=== PATIENT | male | born 1985 | race Caucasian/White ===

== ENCOUNTER 2018-09-30 21:02 | Emergency (ER) | payer OTHER, SELFPAY ==
[2018-09-30 21:04] VITALS: BP 112/74; PULSE 109; RESP 18; TEMP 38.9; O2SAT 94; BMI 28.8
[2018-09-30 21:39] VITALS: BP 112/74; PULSE 109; RESP 18; TEMP 38.9; O2SAT 94
[2018-09-30] MEDS: Acetaminophen 325 MG Tablet 650 MG PO (21:43)
--- NOTE | 2018-09-30 22:04 | EKG12_ITS ---
Test Reason : Blood Pressure : / mmHG Vent. Rate : 092 BPM Atrial Rate : 092 BPM P-R Int : 146 ms QRS Dur : 080 ms QT Int : 348 ms P-R-T Axes : 040 080 052 degrees QTc Int : 430 ms Normal sinus rhythm Nonspecific ST abnormality Abnormal ECG Confirmed by JENNIFER ESCAMILLA, DYAN ([id number]), assignment editor DARREL SYLVESTER ([id number]) on 10/03/2018 12:51:27 PM Referred By: JOSE Confirmed By:DYAN RODRIGUEZ MD
--- NOTE | 2018-09-30 22:06 | ED.VISSUMM ---
- ER Visit Summary Date of Service: 09/30/18 Chief Complaint: Fever and cough History of Present Illness: The patient is a 33 M who presents for 3 days of fever and cough. Patient states he began having a cough, developed a fever, and then began having posttussive emesis as well as vomiting after oral intake. He is only been able to keep down some water. He vomits after food. He now has chest discomfort, sore throat, headache and diffuse myalgias. Patient did not get a flu shot this year. He denies any urinary symptoms. Allergic to codeine. He is a smoker but is not been able to smoking 2 days because it puts his throat. He has 3 family members with similar symptoms. Physical Examination: Vital signs: Febrile at 102.1, tachycardic, normotensive, no hypoxia on room air General: well nourished, well developed, ill-appearing, but nontoxic Skin: warm, flushed, moist, no rash, no pallor HEENT: normocephalic and atraumatic; PERRL, EOMI, moist mucous membranes, no oropharyngeal lesions noted, neck is supple, nontender, no lymphadenopathy Cardiovascular: Tachycardic rate and rhythm without murmurs, no peripheral edema, 2+ pulses all distal extremities Respiratory: No increased work of breathing, lungs show rhonchi in the left lower field Abdominal: Abdomen is soft, nontender with normoactive bowel sounds, no guarding or rebound, no masses MSK: Moves all extremities, no deformities, normal strength Neuro: Awake and alert, oriented ?4. No facial droop, sensation and motor function intact and symmetric Test Results: Abnormal Lab Results 09/30/18 09/30/18 09/30/18 22:22 22:22 23:36 WBC 7.3 RBC 4.69 Hgb 15.3 Hct 44.2 MCV 94.2 H MCH 32.6 H MCHC 34.6 RDW 13.7 RDW Differential 45.8 H Plt Count 72 L MPV 13.0 H Immature Gran % (Auto) 0.300 Neut % (Auto) 84.1 H Lymph % (Auto) 7.1 L [place] % (Auto) 8.4 Eos % (Auto) 0.0 Baso % (Auto) 0.1 Absolute Neuts (auto) 6.2 Absolute Lymphs (auto) 0.52 L Total Counted Not Reportable Differential Comment Sodium 136 Potassium 3.6 Chloride 105 Carbon Dioxide 21.0 Anion Gap 10 BUN 21 H Creatinine 1.23 Estim Creat Clear Calc 95.51 Est GFR (MDRD) Af Amer 88 Est GFR (MDRD) Non-Af 73 BUN/Creatinine Ratio 17.1 Glucose 120 H Lactic Acid 1.0 Calcium 8.2 L Medications Given Lactated Ringer's () 1,000 mls @ 999 mls/hr IV .Q1H1M VIRGIE Stop: 10/01/18 01:25 Ondansetron HCl (Zofran Odt) 0 mg PO .TAKE HOME MED [facility] Discontinued Medications Acetaminophen (Tylenol) 650 mg PO X1 ONE Stop: 09/30/18 21:11 Last Admin: 09/30/18 21:43 Dose: 650 mg Acetaminophen (Tylenol) 650 mg PO X1 ONE Stop: 10/01/18 00:29 Azithromycin (Zithromax) 500 mg PO X1 ONE Stop: 10/01/18 00:45 Sodium Chloride () 1,000 mls @ 1,000 mls/hr IV .Q1H ONE Stop: 09/30/18 23:02 Last Admin: 09/30/18 22:15 Dose: 1,000 mls/hr Ketorolac Tromethamine (Toradol) 30 mg IV X1 ONE Stop: 09/30/18 22:04 Last Admin: 09/30/18 22:17 Dose: 30 mg Ondansetron HCl (Zofran) 4 mg IV X1 ONE Stop: 09/30/18 22:04 Last Admin: 09/30/18 22:18 Dose: 4 mg Promethazine HCl (Phenergan) 12.5 mg IV X1 ONE Stop: 10/01/18 00:29 Emergency Department Course and Treatment: Patient was given IV fluids for hydration, Toradol for fever and discomfort, and Zofran for nausea. He had received Tylenol while in triage. Flu was checked and was negative. Patient had no leukocytosis but did have neutrophil predominance. Lactate normal. Mild dehydration labs. Patient received 1 L of normal saline and on reevaluation was normotensive, afebrile, and heart rate was within normal range. Patient continued to have myalgias, headache and general discomfort and was given additional Tylenol and Phenergan for nausea. He was given additional IV hydration. Chest x-ray was concerning for bilateral lower lobe infiltrate. Discussed this with patient, and he wants to try outpatient treatment. Patient was started on azithromycin, given the first dose in the emergency department. Patient was given return precautions. At time of discharge, he is afebrile, normotensive, room air sat 92-93% without oxygen. Patient appears more comfortable than at presentation. He will return if any worsening of his condition. Discharged home. Treatment Plan: [] Disposition: [] Impression: Community-acquired pneumonia This note was generated with [employer] dictation software. It may contain incorrect words, spelling, and punctuation that were not noted in review of the chart prior to signing ED Disposition - Plan for ED Patient: Chief Complaint: Fever Prescriptions: Azithromycin 250 mg PO DAILY #4 tab Ondansetron [Ondansetron Odt] 4 mg PO TID PRN #10 tab.rapdis PRN Reason: Nausea Referrals: Care Physician,No Primary [Primary Care Provider] -
--- NOTE | 2018-09-30 22:06 | ED.RN ---
NO OLD EKGS IN MUSE
[2018-09-30] MEDS: 0.9% Normal Saline 1,000 ML 1000 ML IV (22:15)
[2018-09-30] MEDS: Ketorolac 30 MG/ML Syringe IV (22:17)
[2018-09-30] MEDS: Ondansetron 4 MG/2 ML Vial IV (22:18)
[2018-09-30 22:20] VITALS: PULSE 92; RESP 14; TEMP 37.7; O2SAT 93
--- NOTE | 2018-09-30 22:24 | RAD_ITS ---
STUDY: X-RAY CHEST REASON FOR EXAM: Male, 33 years old. Cough with fever. TECHNIQUE: PA and lateral views of the chest. COMPARISON: Prior comparison studies are not available for review at this time. FINDINGS: The lungs are hyperexpanded. There is patchy bilateral basilar airspace consolidations and/or atelectasis. There are multiple calcified pulmonary nodules, more numerous on the left lower right. There also appear to be calcified hilar lymph nodes. There is no demonstrated pleural abnormality. Normal size heart. Normal mediastinum and ye. There is prominence of the pulmonary hilar arteries without peripheral pulmonary vascular congestion. Normal visualized aortic arch and descending thoracic aorta. Normal visualized thoracic spine. Normal visualized ribs, clavicles, and shoulders. There is no demonstrated abnormality of the visualized soft tissue structures of the upper abdomen. RAD/Chest PA and Lateral IMPRESSION: 1. Patchy bilateral groundglass attenuation and airspace consolidation suggesting pneumonia. 2. Multiple calcified nodules are presumably related to previous granulomatous infection. Electronically Signed: Oneyda Kimball MD at 1:05 EST , Service support ,
[2018-09-30 22:43] LABS: Absolute Lymphocyte Count 0.52 X10^3/ul (0.83-4.51); Absolute Neutrophil Count 6.2 X10^3/uL (2.0-7.7); Basophil# 0.01 X10^3/uL; Basophil% 0.1 % (0-1); Hematocrit 44.2 % (40-54); Hemoglobin 15.3 g/dl (13.0-16.5); Lymphocyte # 0.52 X10^3/ul (4.0); Lymphocyte % 7.1 % (19-41); Mean Corp Hgb Conc 34.6 g/gl (32-36); Mean Corpuscular Hgb 32.6 pg (27.0-32.0); Mean Corpuscular Volume 94.2 fL (80-94); Monocyte# 0.62 X10^3/uL; Monocyte% 8.4 % (0-10); Neutrophil # 6.17 X10^3/uL (2.7-7.7); Neutrophil % 84.1 % (47-70); Platelet Count 72 K/mm3 (150-450); RBC Distribution Width CV 13.7 % (11.6-14.6); RBC Distribution Width SD 45.8 fl (35.1-43.9); Red Blood Count 4.69 M/mm3 (4.6-6.2); White Blood Count 7.3 K/mm3 (4.4-11.0)
[2018-09-30 22:44] LABS: Differential Indicated SCAN CRITERIA MET; POSITIVE COUNT NO; POSITIVE DIFFERENTIAL YES; POSITIVE MORPHOLOGY NO
[2018-09-30 22:55] LABS: Anion Gap 10 (5-15); BUN 21 mg/dL (7-18); BUN/Creat Ratio 17.1 RATIO (10-20); Calcium,Total 8.2 mg/dL (8.5-10.1); Chloride 105 mmol/L (98-107); Creatinine, Serum 1.23 mg/dL (0.70-1.30); EST Glomerular Filtration Rate 73 mL/min (>60); Est Glom Filt Rate - Afr Amer 88 mL/min (>60); Estimated Creatinine Clearance 95.51 ml/min; Glucose 120 mg/dL (74-106); Potassium 3.6 mmol/L (3.5-5.1); Sodium Level 136 mmol/L (136-145)
[2018-09-30 23:00] VITALS: BP 126/59; PULSE 89; RESP 18; TEMP 36.6; O2SAT 91
[2018-10-01] MEDS: Lactated Ringers 1,000 ML 999 ML IV (00:44)
[2018-10-01] MEDS: Acetaminophen 325 MG Tablet 650 MG PO (00:45)
[2018-10-01] MEDS: proMETHazine 25 MG/ML Syringe 12.5 MG IV (00:46)
[2018-10-01 00:47] VITALS: BP 108/63; PULSE 86; RESP 24; TEMP 36.8; O2SAT 92
--- NOTE | 2018-10-01 00:49 | ED.DEP ---
ED Disposition - Plan for ED Patient: Disposition: Home or Assisted Living Chief Complaint: Fever Instructions: ED Pneumonia Adult Prescriptions: Azithromycin 250 mg PO DAILY #4 tab Ondansetron [Ondansetron Odt] 4 mg PO TID PRN #10 tab.rapdis PRN Reason: Nausea Referrals: Care Physician,No Primary [Primary Care Provider] - Keyon Bird MD [STAFF PHYSICIAN] - 3-5 Days if not improving Additional Instructions: Take the antibiotic prescription starting the night of 10/01/2018. You had your first dose in the emergency department. Use the ondansetron as needed for nausea. Drink plenty of fluids to stay hydrated. Use Tylenol or ibuprofen as needed for fever and discomfort. Insert return precautions.
[2018-10-01] MEDS: Azithromycin 250 MG Tablet 500 MG PO (01:55)
[2018-10-01] MEDS: Ondansetron ODT 4 MG Tablet PO (01:56)
[2018-10-01 02:01] VITALS: BP 108/63; PULSE 85; RESP 20; O2SAT 94
== END 2018-10-01 02:02 | disposition home or self-care (01) ==
PROVIDERS: Emergency Provider Emergency Medicine
DX: J18.9 Pneumonia, unspecified organism (principal); F17.200 Nicotine dependence, unspecified, uncomplicated
CPT/HCPCS: 36415; 71046; 80048; 83605; 85025; 87040; 87804; 93005; 96361; 96374; 96375; 99284; J7030; J7120; A4216; J2405

== ENCOUNTER 2018-11-14 08:16 | Emergency (ER) | payer OTHER, SELFPAY ==
[2018-11-14 08:17] VITALS: BP 146/84; PULSE 79; RESP 16; TEMP 36.3; O2SAT 100; BMI 29.0
--- NOTE | 2018-11-14 08:31 | ED.VISSUMM ---
- ER Visit Summary Date of Service: 11/14/18 Chief Complaint: Head injury History of Present Illness: The patient is a 33 M who presents with a head injury that occurred today. Patient was trying to loosen a bolt at work when the metal bar slipped and hit him in the head. Patient denies any loss of consciousness. Patient admits to a headache. Patient denies any visual changes. Patient denies any nausea or vomiting. Patient is unsure of his last tetanus. Patient states the bleeding stopped after a few minutes. Patient denies any paresthesias or weakness. Physical Examination: Vital signs are stable. Patient is afebrile. Patient is in no acute distress. Skin is warm and dry. There is a 3 cm linear laceration over the forehead. There is minimal bleeding. There is minimal gapping of the wound margins. There is no bony crepitance or step-off. Pupils are equal, round, and reactive to light bilaterally. Extraocular muscles are intact. Cranial nerves II through XII are intact. There are no focal motor or sensory deficits noted. The remaining physical exam is within normal limits. Emergency Department Course and Treatment: The wound was cleaned and closed with Dermabond skin adhesive. Patient tolerated the procedure well. Patient was instructed to follow-up with [facility] in 5-7 days. Patient was instructed to avoid bacitracin, Neosporin, or Vaseline-based ointment to the area. Patient understood and was agreeable with the plan. All questions were answered. Disposition: Discharge home Impression: 1. Forehead laceration 2. Closed head injury This note was generated with [employer] dictation software. It may contain incorrect words, spelling, and punctuation that were not noted in review of the chart prior to signing ED Disposition - Plan for ED Patient: Disposition: Home or Assisted Living Diagnosis: Laceration of forehead, left, complicated, Head injury Instructions: ED Head Injury Closed, ED Laceration Facial Skin Glue Referrals: Care Physician,No Primary [Primary Care Provider] - [facility] [GROUP OF PHYSICIANS] -
--- NOTE | 2018-11-14 08:35 | ED.DCSUM_ITS ---
- ER Visit Summary Date of Service: 11/14/18 Chief Complaint: Head injury History of Present Illness: The patient is a 33 M who presents with a head injury that occurred today. Patient was trying to loosen a bolt at work when the metal bar slipped and hit him in the head. Patient denies any loss of consciousness. Patient admits to a headache. Patient denies any visual changes. Patient denies any nausea or vomiting. Patient is unsure of his last tetanus. Patient states the bleeding stopped after a few minutes. Patient denies any paresthesias or weakness. Physical Examination: Vital signs are stable. Patient is afebrile. Patient is in no acute distress. Skin is warm and dry. There is a 3 cm linear laceration over the forehead. There is minimal bleeding. There is minimal gapping of the wound margins. There is no bony crepitance or step-off. Pupils are equal, ro und, and reactive to light bilaterally. Extraocular muscles are intact. Cranial nerves II through XII are intact. There are no focal motor or sensory deficits noted. The remaining physical exam is within normal limits. Emergency Department Course and Treatment: The wound was cleaned and closed with Dermabond skin adhesive. Patient tolerated the procedure well. Patient was [facility]7 days. Patient was instructed to avoid bacitracin, Neosporin, or Vaseline-based ointment to the area. Patient understood and was agreeable with the plan. All questions were answered. Disposition: Discharge home Impression: 1. Forehead laceration 2. Closed head injury This note was generated with [employer] dictation software. It may contain incorrect words, spelling, and punctuation that were not noted in review of the chart prior to signing ED Disposition - Plan for ED Patient: Disposition: Home or Assisted Living Diagnosis: Laceration of forehead, left, complicated, Head injury Instructions: ED Head Injury Closed, ED Laceration Facial Skin Glue Referrals: Care Physician,No Primary [Primary Care Provider] - [facility] [GROUP OF PHYSICIANS] -
[2018-11-14] MEDS: Diphth,Pertuss(Acell),Tet Vac 0.5 ML Vial IM (08:42)
== END 2018-11-14 09:40 | disposition home or self-care (01) ==
PROVIDERS: Emergency Provider Emergency Medicine
DX: S01.81XA Laceration without foreign body of other part of head, initial encounter (principal); Z72.0 Tobacco use; W20.8XXA Other cause of strike by thrown, projected or falling object, initial encounter; Y93.89 Activity, other specified; Y92.89 Other specified places as the place of occurrence of the external cause; Y99.0 Civilian activity done for income or pay
CPT/HCPCS: 12013; 90471; 90715; 99282

== ENCOUNTER 2019-08-20 08:25 | Emergency (ER) | payer SELFPAY ==
[2019-08-20 08:25] VITALS: BP 153/95; PULSE 107; RESP 18; TEMP 36.5; O2SAT 99; BMI 27.9
--- NOTE | 2019-08-20 08:44 | ED.DCSUM_ITS ---
History of Present Illness Chief Complaint: Allergic Reaction Informant: Patient, Family Onset: Yesterday Current Severity: Moderate Maximum Severity: Moderate Narrative: Patient presents with allergic reaction and rash. He states yesterday afternoon after eating a sandwich he developed rather sudden onset of tingling around his mouth and rash over his face and trunk. He took a shower to try to wash off any contact irritant. This did not change his symptoms and rash actually spread to include his lower extremities. He has been taking Benadryl without significant improvement. He is tolerating secretions and has a strong voice but states he does have some throat tightness when he tries to lie down. Past Medical History - Allergies and Home Meds Allergies/Adverse Reactions: Allergies codeine Allergy (Verified 08/20/19 08:27) Unknown venom-honey bee [bee venom (honey bee)] Allergy (Verified 08/20/19 08:27) Anaphylaxis Primary Care Physician: Marva Valero MD [STAFF PHYSICIAN] - As Needed Care Physician,No Primary [Primary Care Provider] - Prior records reviewed: Yes Past Medical History: None Lives: Spouse/ Significant Other Smoking Status: Current every day smoker Review of Systems General: Denies: Chills, Fever Eyes: Denies: Visual changes - bilaterally ENT: Reports: - - Slight throat tightness when lying down. Denies: Bilateral ear pain Cardiovascular: Denies: Chest pain Respiratory: Reports: Cough - Cough when trying to lay flat. Denies: Dyspnea Gastrointestinal: Reports: Vomiting - Posttussive emesis. Denies: Abdominal pain Genitourinary: Denies: Dysuria Musculoskeletal: Reports: Swelling Skin: Reports: Rash Neurological: Denies: Headache, Weakness Allergy: Reports: Uticaria. Denies: Swelling of the mouth, Swelling of the tongue Physical Exam Vital Signs/Narrative: Vital Signs Temp Pulse Resp BP Pulse Ox 08/20/19 08:25 97.7 F L 107 H 18 153/95 H 99 Inital Vital Signs reviewed: Yes General: Well nourished, Well developed, - - Patient speaks in a strong voice and is tolerating secretions well. Head: Normocephalic ENT: Moist mucous membranes, - - No tongue edema noted. No lip swelling. Posterior pharynx examination is unremarkable. Neck: Supple Cardiovascular: Regular rate, Regular rhythm Respiratory: No distress, CTA bilaterally Abdomen: Soft, Nontender Extremities: - - Patient has healing oconnell to the right hand. There is no sign of secondary infection at this time. Skin: - - Red, slightly raised rash diffusely over face, trunk, extremities. No vesicles or target lesions noted. Neurological: Alert, Oriented x3 Psychological: Normal affect Diagnostic/Tx/Re-eval - Medical Decision Making Patient was given Solu-Medrol, Benadryl, Pepcid. He was observed on youth nutritional monitor for 2 hours. On repeat evaluation he does feel improved. His rash has significantly lessened. He is given a prescription for prednisone taper at home along with Pepcid. He will continue to use Benadryl. ED Disposition - Plan for ED Patient: Disposition: Home or Assisted Living Diagnosis: Allergic reaction Instructions: ALLERGIC REACTION, Other (General) Prescriptions: Famotidine [Pepcid] 20 mg PO BID #28 tab Prescription Printed Prednisone 10 mg PO UD #33 tab Prescription Printed Referrals: Care Physician,No Primary [Primary Care Provider] - Marva Valero MD [STAFF PHYSICIAN] - As Needed
[2019-08-20] MEDS: DiphenhydrAMINE 50 MG/ML Syringe 25 MG IV (08:49)
[2019-08-20] MEDS: MethylPREDNISolone 125 MG/2 ML Vial IV (08:50)
[2019-08-20] MEDS: 0.9% Normal Saline 1,000 ML 15 ML IV (08:50)
[2019-08-20 08:57] VITALS: BP 153/95; PULSE 107; RESP 18; TEMP 36.5; O2SAT 99
[2019-08-20] MEDS: Famotidine 200 MG/20 ML MDV 20 MG in 0.9% Normal Saline (Pres. free 8 ML 300 MG IV (09:44)
[2019-08-20 10:49] VITALS: BP 123/72; PULSE 81; RESP 20; O2SAT 97
--- NOTE | 2019-08-20 10:49 | ED.RN ---
THIS NURSE REVIEWED D/C INSTRUCTIONS WITH PT AND S.O. PT VERBALIZED UNDERSTANDING OF INSTRUCTIONS. IV D/C. IV CATHETER INTACT. PT TOLERATED WELL. PT DENIES FURTHER NEEDS OR QUESTIONS AT THIS TIME.
== END 2019-08-20 10:50 | disposition home or self-care (01) ==
PROVIDERS: Emergency Provider Emergency Medicine
DX: T78.40XA Allergy, unspecified, initial encounter (principal); F17.200 Nicotine dependence, unspecified, uncomplicated
CPT/HCPCS: 96374; 96375; 99285; J7030; A4216; J3490

== ENCOUNTER → 2020-02-13 | Outpatient (CLI) | payer SELFPAY ==
[2020-02-13 16:40] LABS: Bacteria 0 SEEN /hpf (None Seen); Mucous, Urine 0 SEEN /hpf (<or=2+); Red Blood Cells-Urine 0 SEEN /hpf (0-5)
[2020-02-13 17:06] LABS: Absolute Lymphocyte Count 2.21 X10^3/uL (0.83-4.51); Absolute Neutrophil Count 4.9 X10^3/uL (2.0-7.7); Basophil# 0.07 X10^3/uL; Basophil% 0.9 % (0-1); Eosinophil# 0.07 X10^3/uL; Eosinophils% 0.9 % (0-5); Hematocrit 46.8 % (40-54); Hemoglobin 15.9 g/dL (13.0-16.5); Lymphocyte # 2.21 X10^3/ul (4.0); Lymphocyte % 28.7 % (19-41); Mean Corpuscular Hgb 32.5 pg (27.0-32.0); Mean Corpuscular Volume 95.7 fL (80-94); Mean Platelet Vol. 11.7 fl (6.2-12.0); Monocyte# 0.48 X10^3/uL; Monocyte% 6.2 % (0-10); NRBC Flagged by Analyzer 0 % (0-5); Neutrophil # 4.86 X10^3/uL (2.7-7.7); Platelet Count 176 K/mm3 (150-450); RBC Distribution Width CV 12.2 % (11.6-14.6); RBC Distribution Width SD 42.6 fl (35.1-43.9); Red Blood Count 4.89 M/mm3 (4.6-6.2); White Blood Count 7.7 K/mm3 (4.4-11.0)
[2020-02-13 17:20] LABS: Color, Urine Yellow (Yellow); Glucose, Dipstick Normal (Normal); Ketone-Dipstick Negative (Negative); Leukocyte Esterase-Dipstick Negative /ul (Negative); Nitrite-Dipstick Negative (Negative); Occult Blood-Urine Negative /ul (Negative); Protein-Dipstick Negative (Negative); Urine Bilirubin Dipstick Negative (Negative); Urine Clarity Sl Cldy (Clear); Urine Urobilinogen Normal (Normal)
[2020-02-13 17:22] LABS: Amorphous Sediment 1+ PHOS; Squamous Epithelial Cells - UA 0-5 SEEN /hpf (0-5); White Blood Cells 0 SEEN /hpf (0-5)
[2020-02-13 18:08] LABS: ALB/GLOB Ratio 1.2 RATIO (0.9-2.4); AST(SGOT) 20 U/L (15-37); Alanine Aminotransfer ALT/SGPT 25 U/L (16-61); Albumin, Serum 4.1 g/dL (3.2-5.0); Alkaline Phosphatase 86 U/L (45-117); Anion Gap 7 (5-15); BUN 25 mg/dL (7-18); BUN/Creat Ratio 16.2 RATIO (10-20); Calcium,Total 8.7 mg/dL (8.5-10.1); Chloride 104 mmol/L (98-107); Creatinine, Serum 1.54 mg/dL (0.70-1.30); EST Glomerular Filtration Rate 56 mL/min (>60); Est Glom Filt Rate - Afr Amer 67 mL/min (>60); Globulin 3.4 g/dL (2.2-4.2); Glucose 107 mg/dL (74-106); Protein, Total 7.5 g/dL (6.4-8.2); Sodium Level 140 mmol/L (136-145); Thyroid Stim Hormone (TSH) 1.89 uIU/mL (0.358-3.74)
[2020-02-14 09:05] LABS: Hepatitis B Surface Antibody Reactive; Hepatitis B Surface Antigen Non-Reactive (Nonreactive); Hepatitis C Antibody Non-Reactive (Nonreactive); Vitamin B12 567 pg/mL (211-911); Vitamin D,25 Hydroxy 22.6 ng/mL
[2020-02-14 09:25] LABS: Hemoglobin A1c 5.8 % (4.2-6.3)
[2020-02-17 12:03] LABS: Vitamin B1, Thiamine 162.3 nmol/L (66.5-200.0)
== END | disposition home or self-care (01) ==
LOC: LAB 16:30
PROVIDERS: Referring Provider Family Medicine; Visit Provider Family Medicine
DX: F19.11 Other psychoactive substance abuse, in remission (principal); F10.10 Alcohol abuse, uncomplicated; R53.83 Other fatigue; R73.09 Other abnormal glucose; Z72.0 Tobacco use
CPT/HCPCS: 36415; 80053; 81001; 82306; 82607; 82746; 83036; 84425; 84443; 85025; 86706; 86803; 87340

== ENCOUNTER → 2020-03-05 | Outpatient (CLI) | payer SELFPAY ==
[2020-03-05 17:20] LABS: Hemoglobin A1c 5.2 % (3.8-5.6)
[2020-03-05 18:01] LABS: Anion Gap 8 (5-15); BUN 20 mg/dL (7-18); Calcium,Total 8.9 mg/dL (8.5-10.1); Chloride 108 mmol/L (98-107); Creatinine, Serum 1.05 mg/dL (0.70-1.30); EST Glomerular Filtration Rate 87 mL/min (>60); Est Glom Filt Rate - Afr Amer 105 mL/min (>60); Glucose 86 mg/dL (74-106); Potassium 4.1 mmol/L (3.5-5.1); Sodium Level 142 mmol/L (136-145)
== END | disposition home or self-care (01) ==
LOC: LAB 16:53
PROVIDERS: Visit Provider Family Medicine
DX: R73.09 Other abnormal glucose (principal); R94.4 Abnormal results of kidney function studies
CPT/HCPCS: 36415; 80048; 83036